=== PATIENT | female | born 1960 | race Caucasian/White ===

== ENCOUNTER 2016-07-16 10:31 | Emergency (ER) ==
--- NOTE | 2016-07-16 11:28 | PROVIDER DOCUMENTATION ---
HPI-Musculoskeletal Pain/Inj - GENERAL Chief Complaint: Extremity Pain Stated Complaint: POSS DVT Time Seen by Provider: 07/16/16 11:24 Source: patient - HX OF PRESENT ILLNESS-MUSKULOSKELTAL Nature of Presenting Problem: Patient is a 55 y/o F that presents to the ER per request of her physician to have evaluation for possible DVT to left leg. Patient woke up this am with bruising up left lower leg. She denies injury. Denies history of DVT. She reports no shortness of breath, chest pain, or swelling to leg Quality of Pain: reports: dull Severity in ED: mild, moderate Onset/Duration: unsure Timing: still present, constant Modifying Factors: worse with: movement, palpation Any recent injury?: No Locality of Occurance: Home Similar Symptoms Previously?: No Recently seen or treated by another doctor?: No - LOWER EXTREMITY PAIN/INJURY Lower Extremities Pain: leg: left, ankle: left Context / Method of Injury: reports: unknown Associated Symptoms: reports: denies symptoms Review of Systems - Adult - REVIEW OF SYSTEMS - ADULT Constitutional: denies: chills, fever Eyes: reports: no symptoms reported Ears, Nose, Mouth & Throat: reports: no symptoms reported Cardiovascular: denies: chest pain, palpitations Respiratory: denies: dyspnea on exertion, shortness of breath Gastrointestinal: denies: abdominal pain, nausea, vomiting Genitourinary: reports: no symptoms reported Musculoskeletal: reports: joint pain. denies: back pain, neck pain Integumentary: reports: see HPI Neurological: reports: no symptoms reported Psychiatric: reports: no symptoms reported Endocrine: reports: no symptoms reported Hematologic/Lymphatic: reports: no symptoms reported Allergic/Immunologic: reports: no symptoms reported All Other Systems: Reviewed and Negative Past History - Adult - PAST MEDICAL HISTORY-ADULT Review of Records: reports: Old Records Reviewed, Nursing Assessment Review, Medications Reviewed - IMMUNIZATION STATUS Childhood Immunizations: See Nurse Assessment Flu Vaccine: See Nurse Assessment - FAMILY HISTORY Family History: PE/DVT - SOCIAL HISTORY Living Situation: family Physical Exam-Injury Related - Physical Exam-Injury Related Initial Vital Signs Reviewed: Yes General Appearance: alert, no apparent distress Eyes: PERRL/EOMI, pink conjunctivae Head, Ears, Nose, Mouth & Throat: normocephalic/atraumatic, moist mucous membranes, normal ENT inspection Neck: full range of motion, normal inspection Respiratory: lungs clear, normal breath sounds, no respiratory distress, no accessory muscle use Cardiovascular: normal peripheral pulses, regular rate, rhythm Peripheral Pulses: dorsalis-pedis (R): 4+, dorsalis-pedis (L): 4+ Abdominal Exam: normal bowel sounds, non tender, soft Extremity: non-tender, no calf tenderness, normal capillary refill, pelvis stable Integumentary: warm/dry, ecchymosis (left inner ankle) Psych/Mental Status: normal mood/affect, normal thought content, normal thought process, oriented x 3 Progress - PLAN OF CARE/RESULTS Progress/Plan/Lab Results: plan of care-u/s left leg r/o dvt Vital Signs Temp Pulse Resp BP Pulse Ox 07/16/16 10:36 98.3 F 89 18 154/81 98 No Known Allergies Allergy (Verified 07/16/16 13:50) No Home Medications 07/16/16 Orders Category Date Time Status US [Venous U/S Left Leg] [CV] Stat Ther 07/16/16 11:28 Ordered pt will be d/c home f/u with pcp, pt was clinically stable, understood results / instructions - ULTRASOUND (By Radiology) 1 US Study: Lower Ext (left lower) Impression: Normal US Results: no dvt Departure - Departure Time of Disposition Order: 14:07 DIAGNOSIS: Superficial bruising of lower leg Qualifiers: Encounter type: initial encounter Laterality: left Qualified Code(s): S80.12XA - Contusion of left lower leg, initial encounter Disposition: HOME 01 Certified Medical Emergency: Emergent Condition: Stable Additional Instructions: ED Follow Up Instructions: You have been treated by a care provider in the Emergency Department. These instructions are being provided to you so you can have an understanding of how to care for yourself upon discharge. Upon discharge from the Emergency Department, you are responsible for making arrangements for follow-up care by a physician of your choice. Take all prescribed medications as directed. Return to the Emergency Department immediately for any new or worsening symptoms. You may call the Physician Referral phone number at [phone] to obtain a list of Physicians who are taking new patients. Referrals: Corbin Patino, [Primary Care Provider] - Call for Appoint. 1-2days Attestation - Scribe Verification/Attestation Scribe:: Kd Bishop Acting as Scribe for:: Zach Solares Scribe documention review:: This chart was documented by a scribe and accurately reflects the service the provider performed and the decisions made by the provider. Physician Attestation - Physician Attestation I, the provider, attest to the following statement:: Zach Solares Physician documentation Attestation:: This documentation recorded by the scribe accurately reflects the service I personally performed and the decisions made by me.
[2016-07-16 14:25] VITALS: BP 139/78
== END 2016-07-16 15:08 | disposition home or self-care (01) ==
LOC: ED 10:31
DX: S80.12XA Contusion of left lower leg, initial encounter (principal); M79.662 Pain in left lower leg; S90.02XA Contusion of left ankle, initial encounter
CPT/HCPCS: 93971